=== PATIENT | female | born 1990 | race African-American/Black ===

== ENCOUNTER 2018-01-01 18:06 | Observation (INO) | payer OTHER ==
[2018-01-01] MEDS ORDERED: cefTRIAXone(*) 1 GM in NS 0.9% 50 ML* 50 ML IVPB ONE (19:12)
[2018-01-01] MEDS ORDERED: NS 0.9% 1000 ML* 1,000 ML IV ONE (19:12)
[2018-01-01] MEDS ORDERED: Ketorolac INJ* 30 MG/ML 1 ML VIAL IV PUSH ONE (19:13)
[2018-01-01] MEDS ORDERED: Dexamethasone IV* 4 MG/ML 5 ML VIAL (20 MG) IVPB ONE (19:13)
--- NOTE | 2018-01-01 19:17 | ED ---
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 Sx started after HPV vaccine 5 days ago and consisted of sore throat, runny nose and body aches. This has progressed into trismus, inability to swallow, fever to 102 and worsened body aches. Not . Has boyfriend. LMP 21 Nov. Otherwise healthy prior. Hx is otherwise limited now by pt's inability to speak. She writes out hx. - History of Current Complaint Chief Complaint: EDFever Time Seen by Provider: 01/01/18 19:04 Hx Obtained From: Patient Onset/Duration: Gradual Onset - Allergy/Home Medications Allergies/Adverse Reactions: Allergies Allergy/AdvReac Type Severity Reaction Status Date / Time No Known Allergies Allergy Verified 01/01/18 19:53 PMH/Surg Hx/FS Hx/Imm Hx Previously Healthy: Yes EENT History: Denies: Hx Seasonal Allergies, Pharyngitis - Immunization History Date of Tetanus Vaccine: UTD Immunizations Up to Date: Yes Infectious Disease History: No Infectious Disease History: Denies: Traveled Outside the [place] in Last 30 Days - Social History Occupation: Student Lives: Dormitory/Roommates Alcohol Use: Occasionally Substance Use Type: Reports: None Smoking Status (MU): Never Smoked Tobacco Have You Smoked in the Last Year: No - Additional Comments History Additional Comments: LMP 31 Nov Review of Systems Positive: Fever, Chills, Fatigue Positive: Sore Throat, Nasal Discharge, Other - trimus Negative: Palpitations Negative: Shortness Of Breath Negative: Vomiting, Nausea Negative: Rash All Other Systems Reviewed And Are Negative: Yes Physical Exam Triage Information Reviewed: Yes Vital Signs On Initial Exam: Initial Vitals Temp Pulse Resp BP Pulse Ox 39.1 C 117 20 148/80 98 01/01/18 18:09 01/01/18 18:09 01/01/18 18:09 01/01/18 18:09 01/01/18 18:09 Vital Signs Reviewed: Yes Appearance: Positive: Ill-Appearing - unable to speak or swallow. Negative: No Pain Distress Skin: Positive: Warm, Skin Color Reflects Adequate Perfusion, Dry Head/Face: Positive: Normal Head/Face Inspection Eyes: Positive: Normal ENT: Positive: Other - exudative R tonsil with malodorous breath and mild trismus. No def abscess or uvular shift. Negative: Normal ENT inspection Neck: Positive: Supple, Tenderness @ - R neck, Enlarged Nodes @ - R ant cervical , Other: - no stridor Respiratory/Lung Sounds: Positive: Clear to Auscultation, Breath Sounds Present Cardiovascular: Positive: Normal, Tachycardia Abdomen Description: Positive: Nontender, No Organomegaly Musculoskeletal: Positive: Normal, Strength/ROM Intact Neurological: Positive: Normal, Sensory/Motor Intact, Alert, Oriented to Person Place, Time Psychiatric: Positive: Normal Diagnostics - Vital Signs Vital Signs Temp Pulse Resp BP Pulse Ox 01/01/18 18:09 39.1 C 117 20 148/80 98 - Laboratory Lab Results: Lab Results 01/01/18 01/01/18 Range/Units 18:38 18:38 Influenza A (Rapid) Negative (Negative) Influenza B (Rapid) Negative (Negative) Group A Strep Rapid Negative (Negative) Result Diagrams: 01/01/18 19:50 01/01/18 19:50 Lab Statement: Any lab studies that have been ordered have been reviewed, and results considered in the medical decision making process. - CT No standard instances CT Interpretation: Positive (See Comments) CT Interpretation Completed By: Radiologist - postivive for acute inflammation originating in the R peritonsilar area extending into the epiglottis and retropharyngeal area. No abscess. Moderate narrowing of the airway. Re-Evaluation - Re-Evaluation First Eval Re-Evaluation Time: 21:18 Change: Improved - slight improvement. No deterioration Flu Symptom Course/Dx - Course Course Of Treatment: pt ill appearing without def abscess on exam. CT confirmed this but she shows extensive inflammation on CT. D/W ENT surgeon who agrees at current tx, admission. He is available in case of deterioration. Pt improved slightly. Concern for airway. Admit for further. IVF, rocephin and IV decadron given in ED. - Diagnoses Differential Diagnosis/HQI/PQRI: Positive: Other - mono, strep, PT abscess, Epiglottitis, RPA Provider Diagnoses: Epiglottitis, Acute infective tonsillitis - Physician Notifications Discussed Care Of Patient With: Dano Marroquin - admit, available if deterioration Time Discussed With Above Provider: 21:10 - D/W Dr Romario Koch, hospitalist at 2114 who will admit Instructed by Provider To: Admit As Inpatient Critical Care Time: 30-74 min - exclusive of separately billable procedures Discharge - Discharge Plan Condition: Guarded Disposition: ADMITTED TO [facility] Referrals: [facility] - Jorge DICKERSON [Primary Care Provider] -
[2018-01-01 20:06] LABS: ABS Basophils 0 10^3/ul (0-0.2); ABS Eosinophils 0 10^3/ul (0-0.6); ABS Lymphocytes 1.4 10^3/ul (1.0-4.8); ABS Monocytes 1.1 10^3/ul (0-0.8); ABS Nucleated RBC 0 10^3/ul; Eosinophil % 0 % (0-6); Hematocrit 42 % (35-47); Lymphocyte % 6.7 % (25-47); Mean Corpuscular HGB Conc 34 g/dl (31-36); Mean Corpuscular Hemoglobin 30 pg (27-31); Mean Corpuscular Volume 90 fL (80-97); Mean Platelet Volume 7 um3 (7.4-10.4); Nucleated Red Blood Cells % 0; Platelet Count 364 10^3/ul (150-450); Red Cell Distribution Width 13 % (10.5-15); White Blood Count 21.5 10^3/ul (3.5-10.8)
[2018-01-01 20:17] LABS: EGFR Non-African American 73.5 (>60)
[2018-01-01] MEDS ORDERED: Iohexol 300* (CONTRAST) 10 ML SDV IV ONE (20:25)
--- NOTE | 2018-01-01 21:08 | RAD ---
INDICATION: Possible right peritonsillar abscess. COMPARISON: There are no prior studies available for comparison. TECHNIQUE: A CT scan of the neck was performed with intravenous contrast following intravenous injection of 50 ml of Omnipaque 300 nonionic contrast. Contiguous axial sections were obtained from the skull base through the lung apices. Images were reconstructed in the coronal and sagittal planes. There is suboptimal contrast opacification and a paucity of fat limiting the study. FINDINGS: There is marked soft tissue swelling in the right peritonsillar region with edema and inflammation extending inferiorly to involve the epiglottis and right aryepiglottic fold. There is effacement of the right piriform sinus. There is also edema extending into the retropharyngeal space which is most prominent on the right side. The swelling extends inferiorly to the level of the vocal cords and top of the thyroid gland. There is mass effect with narrowing and displacement of the airway toward the left side. No discrete fluid collection or abscess is seen. There is an enlarged right jugulodigastric lymph node measuring 1.5 cm in transverse dimension. No other enlarged lymph nodes are seen. The thyroid gland appears to be within normal limits. The lung apices appear clear. The paranasal sinuses and mastoid air cells appear clear. No significant focal osseous abnormality is seen. The results of this exam were discussed with the referring clinician. IMPRESSION: THERE IS MARKED SOFT TISSUE SWELLING IN THE RIGHT PERITONSILLAR REGION WITH EDEMA AND INFLAMMATION EXTENDING INFERIORLY TO INVOLVE THE EPIGLOTTIS, RIGHT ARYEPIGLOTTIC FOLD AND ALSO EXTENDING INTO THE RETROPHARYNGEAL SPACE. THIS CAUSES MASS EFFECT WITH NARROWING AND DISPLACEMENT OF THE AIRWAY TOWARD THE LEFT SIDE. NO ABSCESS IS SEEN.
[2018-01-01] MEDS ORDERED: NS 0.9% w/ 20 Meq KCL 1000 ML* 1,000 ML IV SCH (22:00)
[2018-01-01] MEDS ORDERED: Morphine INJ* 2 MG/ML 1 ML CARPUJECT IV PRN (22:08)
[2018-01-01] MEDS ORDERED: KCL 20 MEQ/100 ML IVPREMIX* 20 MEQ/100 ML BAG IV ONE (22:11)
[2018-01-01] MEDS ORDERED: KCL premix 10MEQ/50 ML x 2 BAGS IV SCH (23:00)
[2018-01-01] MEDS ORDERED: Dexamethasone IV* 4 MG in NS 0.9% 50 ML* 50 ML IVPB SCH (23:00)
[2018-01-01] MEDS: NS 0.9% 1000 ML* 1,000 ML IV SCH (23:43)
[2018-01-02] MEDS ORDERED: NS 0.9% IVPB ONE ×2
[2018-01-02] MEDS ORDERED: POTASSIUM CHLORIDE IVPB ONE ×2
[2018-01-02] MEDS: Clindamycin 600 MG IVPREMIX(* 600 MG/50 ML SDV IV SCH ×5 (00:55→23:56)
[2018-01-02] MEDS ORDERED: Dexamethasone IV* 4 MG/ML 1 ML (4 MG) IV SLOW PU SCH (02:00)
[2018-01-02] MEDS: Dexamethasone IV* 4 MG/ML 1 ML (4 MG) IV SLOW PU SCH ×4 (02:08→19:36)
[2018-01-02 06:32] LABS: Hematocrit 39 % (35-47); Hemoglobin 12.9 g/dl (12.0-16.0); Mean Corpuscular HGB Conc 33 g/dl (31-36); Mean Corpuscular Hemoglobin 30 pg (27-31); Mean Corpuscular Volume 91 fL (80-97); Mean Platelet Volume 7 um3 (7.4-10.4); Platelet Count 337 10^3/ul (150-450); Red Blood Count 4.25 10^6/ul (4.0-5.4); Red Cell Distribution Width 13 % (10.5-15); White Blood Count 25.6 10^3/ul (3.5-10.8)
[2018-01-02 06:43] LABS: EGFR Non-African American 88.7 (>60)
--- NOTE | 2018-01-02 07:45 | HP ---
CC: [facility] * HISTORY AND PHYSICAL: DATE OF ADMISSION: 01/01/18 PRIMARY CARE PROVIDER: [facility]. CHIEF COMPLAINT: Sore throat. 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 The patient states that this past Tuesday, she received HPV vaccine. The following day, she developed severe throat. She states that the throat discomfort progressed over the course of the next several days, but was worse on the day of admission. It got to the point where the patient had a difficult time opening her mouth. She has been unable to handle (swallow) her own saliva. She has not been able to really eat or drink anything over the last few days due to the very severe throat. Additionally, the patient does complain of some shortness of breath and cough over the last 2-3 days. She denies any sputum production. The patient has had fevers and chills over the last 2 days. Additionally, the patient has been having intermittent episodes of nausea and vomiting. The patient does state that she is feeling improved mildly after presenting to the emergency room and receiving fluids, steroids, and antibiotics. PAST MEDICAL HISTORY: None. PAST SURGICAL HISTORY: None. MEDICATIONS: None. ALLERGIES: None. FAMILY HISTORY: Mother is living. She is 60 and healthy. Father is living. He is 62 and healthy. They live in [place]. SOCIAL HISTORY: The patient is a nonsmoker. She drinks alcohol on occasion. She does not use any recreational drugs. She is at [employer] studying [employer]. She is not . She has no children. Her mother would be her healthcare proxy. REVIEW OF SYSTEMS: The patient admits to fevers and chills as above. She does state that she has an appetite, but she has not been able to eat due to the sore throat. She admits to chest pain with coughing. No lower extremity edema. She admits to the cough and shortness of breath as above. She has had nausea and vomiting as above. No abdominal pain, constitution, diarrhea or hematochezia. No hematuria. No dysuria. She does admit to generalized weakness. No sudden changes in vision. She admits to dysphagia. No joints pains or muscle pains out of the ordinary. No rashes, no anxiety or depression. PHYSICAL EXAMINATION GENERAL: The patient is a well-developed, young female, sitting up in the stretcher, in no acute distress. VITAL SIGNS: Blood pressure 110/74, pulse 111, respirations 20, temp 100.2, currently T-max 102.3. O2 sat 97% on room air. HEENT: Pupils are equal and round. Extraocular muscles are intact. Oropharynx is clear. It is difficult to see to the posterior pharynx. The patient's tongue appears to be coated with a white-yellow material. There is a fullness to the right submandibular region compared to the left. This is tender to palpation. The patient is seen multiple times during my evaluation needing to spit into a wash cloth. She does have some drooling noted as well. PULMONARY: Lungs are clear bilaterally. CARDIAC: Normal S1, S2. Heart rate is tachycardic, but regular. There is no lower extremity edema. ABDOMEN: Bowel sounds are present. Abdomen is soft, nontender, and nondistended. MUSCULOSKELETAL: There is no cyanosis or clubbing of the digits. There is full active range of motion of all 4 extremities. SKIN: Warm and dry. There are no rashes. NEUROLOGIC: Cranial nerves II through XII are grossly intact. Sensation is intact to light touch throughout. Strength is 5/5 and symmetric in both the upper and lower extremities bilaterally. PSYCH: The patient is alert. She is oriented x3. Affect appears appropriate. DIAGNOSTIC STUDIES/LAB DATA: WBC 21.5, hemoglobin 14.0, hematocrit 42, platelets 364. Sodium 134, potassium 3.4, chloride 98, CO2 25, BUN 9, creatinine 0.93, glucose 117, lactic acid 1.4, calcium 9.9. [place] screen negative. Influenza A and B negative. Group A strep rapid negative. CT neck, there is marked soft tissue swelling in the right peritonsillar region with edema and the inflammation extending inferiorly to involve the epiglottis, right aryepiglottic fold, and also extending into the retropharyngeal space. This causes mass effect with narrowing and displacement of the airway towards the left. No abscess is seen. ASSESSMENT AND PLAN: Ms. Dolores Kerns is a 27-year-old female who presents to the emergency room with a 5-day history of severe sore throat, difficulty swallowing, fevers and chills and is found have acute pharyngitis with possible epiglottitis. 1. Pharyngitis and epiglottitis. Most likely this is viral in nature. However , the concern for epiglottitis, the patient will be treated with IV antibiotics. The patient has received ceftriaxone in the emergency room and this will be continued on a daily basis. Additionally, I will add clindamycin to cover for possible MRSA. Blood cultures have been sent and are pending at this time. The patient has a marked leukocytosis. This will be followed. Additionally, she will have a CRP added to her labs taken in the emergency room. The patient will need to be monitored very closely for any airway compromise. Additionally followup imaging may be necessary to determine whether or not an abscess does develop in the peritonsillar space. She will continue on Decadron 4 mg IV q. 6 hours. She did receive 10 mg in the emergency room. She will have Toradol and morphine available for pain. The patient has been informed to alert nursing is she has any change in her respiratory status where she feels suddenly like it is more difficult to breath. Will follow up with ENT tomorrow. The ER provider did speak to Dr. Marroquin from ENT this evening. The patient is septic based on sepsis 2 criteria with tachycardia, fever, leukocytosis, and tachypnea. The patient has no end organ dysfunction, however. The patient will be monitored for worsening signs of sepsis. 2. DVT prophylaxis. According to the Adult Thrombosis Prophylaxis Risk Factor Assessment Guide, the patient has a total risk factor score of 1 making her low risk. Ambulation will be utilized as DVT prophylaxis. 3. Code status is full. TIME SPENT: 65 minutes was spent admitting this patient. [id number]/[facility] #: [id number] BRIAN
[2018-01-02] MEDS: NS 0.9% 1000 ML* 1,000 ML IV SCH ×2 (09:14→18:11)
[2018-01-02] MEDS: Ondansetron INJ* 2 MG/ML VIAL IV PRN ×2 (09:19→18:13)
--- NOTE | 2018-01-02 16:17 | PN ---
Subjective Date of Service: 01/02/18 Interval History: says she feels better today than she did last night. tried some liquids, and could not swallow them at all. Family History: Unchanged from Admission Social History: Unchanged from Admission Past Medical History: Unchanged from Admission Objective Active Medications: Dexamethasone Sodium Phosphate (Decadron Iv*) 8 mg IV SLOW PU Q6H [facility] Last Admin: 01/02/18 13:40 Dose: 8 mg Clindamycin HCl/Dextrose (Cleocin 600 Mg Ivpremix(*) Sdv) 600 mg in 50 mls @ 100 mls/hr IV Q6H [facility] Last Admin: 01/02/18 13:51 Dose: 100 mls/hr Sodium Chloride (Ns 0.9% 1000 Ml*) 1,000 mls @ 150 mls/hr IV PER RATE [facility] Last Admin: 01/02/18 09:14 Dose: 150 mls/hr Ceftriaxone Sodium 1 gm/ (Dextrose) 50 mls @ 200 mls/hr IVPB Q24H [facility] Ketorolac Tromethamine (Toradol Inj*) 30 mg IV PUSH Q6H PRN PRN Reason: PAIN Morphine Sulfate (Morphine Inj (Syringe)*) 2 mg IV Q4H PRN PRN Reason: PAIN - MILD Ondansetron HCl (Zofran Inj*) 4 mg IV Q6H PRN PRN Reason: NAUSEA Last Admin: 01/02/18 09:19 Dose: 4 mg Vital Signs - 8 hr 01/02/18 01/02/18 01/02/18 08:24 10:57 13:07 Temperature 97.7 F 98.6 F Pulse Rate 81 82 82 Respiratory 14 20 Rate Blood Pressure 99/57 93/62 116/69 (mmHg) O2 Sat by Pulse 100 100 100 Oximetry 01/02/18 15:24 Temperature 98.9 F Pulse Rate 101 Respiratory 19 Rate Blood Pressure 117/70 (mmHg) O2 Sat by Pulse 100 Oximetry Oxygen Devices in Use Now: None Appearance: alert, nontoxic female in no distress Eyes: No Scleral Icterus Ears/Nose/Mouth/Throat: - - markedly edematous tonsils, L>R without exudates. foul smelling. no drooling. Neck: - - R submandibular adenopathy Respiratory: Symmetrical Chest Expansion and Respiratory Effort, - - no stridor , no wheezing Extremities: No Edema Skin: No Rash or Ulcers Neurological: Alert and Oriented x 3 Result Diagrams: 01/02/18 06:02 01/02/18 06:02 Additional Lab and Data: Lab Results 01/01/18 01/01/18 Range/Units 18:38 18:38 Influenza A (Rapid) Negative (Negative) Influenza B (Rapid) Negative (Negative) Group A Strep Rapid Negative (Negative) Assess/Plan/Problems-Billing Assessment: 27 yo female with no medical history admitted after several days of sore throat for inability to tolerate po and handle secretions - Patient Problems (1) Acute tonsillitis Current Visit: Yes Status: Acute Code(s): J03.90 - ACUTE TONSILLITIS, UNSPECIFIED SNOMED Code(s): 27890004 Comment: rapid strep, mono, and flu are negative Ct neck showed to peritonsillar or retropharyngeal abscess no stridor on exam still unable to take PO, continue IVF continue IV clinda continue continuous pulse oximetry (2) Sepsis Current Visit: Yes Status: Acute Comment: due to #1; clinda as above, continue IVF resuscitation Status and Disposition: inpatient until can take PO
[2018-01-02] MEDS: Ketorolac INJ* 30 MG/ML 1 ML VIAL IV PUSH PRN (19:37)
[2018-01-02] MEDS: cefTRIAXone(*) 1 GM in D5W 50 ML BAG* 50 ML IVPB SCH (19:44)
[2018-01-03] MEDS: Dexamethasone IV* 4 MG/ML 1 ML (4 MG) IV SLOW PU SCH ×4 (01:40→19:23)
[2018-01-03] MEDS: NS 0.9% 1000 ML* 1,000 ML IV SCH (04:03)
[2018-01-03] MEDS: Clindamycin 600 MG IVPREMIX(* 600 MG/50 ML SDV IV SCH ×2 (06:03→13:06)
[2018-01-03 07:27] LABS: Hematocrit 35 % (35-47); Hemoglobin 11.7 g/dl (12.0-16.0); Mean Corpuscular HGB Conc 33 g/dl (31-36); Mean Corpuscular Hemoglobin 30 pg (27-31); Mean Corpuscular Volume 91 fL (80-97); Mean Platelet Volume 7 um3 (7.4-10.4); Platelet Count 311 10^3/ul (150-450); Red Blood Count 3.87 10^6/ul (4.0-5.4); Red Cell Distribution Width 13 % (10.5-15); White Blood Count 26.1 10^3/ul (3.5-10.8)
[2018-01-03 07:42] LABS: EGFR Non-African American 97.1 (>60)
[2018-01-03 08:42] LABS: ABS Basophils 0 10^3/ul (0-0.2); ABS Eosinophils 0 10^3/ul (0-0.6); ABS Lymphocytes 1.4 10^3/ul (1.0-4.8); ABS Monocytes 0.7 10^3/ul (0-0.8); ABS Neutrophils 24.1 10^3/ul (1.5-7.7); ABS Nucleated RBC 0 10^3/ul; Eosinophil % 0 % (0-6); Lymphocyte % 5.2 % (25-47); Nucleated Red Blood Cells % 0
[2018-01-03] MEDS: Ketorolac INJ* 30 MG/ML 1 ML VIAL IV PUSH PRN (10:17)
[2018-01-03] MEDS: Clindamycin CAP* 150 MG PO SCH ×2 (15:31→22:35)
[2018-01-03] MEDS: cefTRIAXone(*) 1 GM in D5W 50 ML BAG* 50 ML IVPB SCH (19:27)
[2018-01-04] MEDS: Ketorolac INJ* 30 MG/ML 1 ML VIAL IV PUSH PRN (00:27)
[2018-01-04] MEDS: Dexamethasone IV* 4 MG/ML 1 ML (4 MG) IV SLOW PU SCH ×2 (02:05→08:23)
[2018-01-04 03:50] LABS: Urine Appearance Clear; Urine Blood Negative (Negative); Urine Color Yellow; Urine Ketones Negative (Negative); Urine Protein Negative (Negative); Urine Specific Gravity 1.032 (1.010-1.030); Urine Urobilinogen Negative (Negative)
[2018-01-04] MEDS: Clindamycin CAP* 150 MG PO SCH (05:49)
[2018-01-04 08:00] VITALS: BP 122/75
--- NOTE | 2018-01-05 05:51 | DS ---
DISCHARGE SUMMARY: DATE OF ADMISSION: 01/01/18. DATE OF DISCHARGE: 01/04/18. PRINCIPAL DISCHARGE DIAGNOSES: Pharyngitis, tonsillitis and epiglottitis with airway compromise. BRIEF HOSPITAL COURSE BY PROBLEM: Pharyngitis/tonsillitis/epiglottitis. Ms. Dolores Kerns who presented to the emergency department with severe sore throat and inability to handle her secretions. A CT neck at admission showed marked soft tissue swelling in the right peritonsillar region with edema and inflammation extending inferiorly to involve the epiglottitis, right rima- epiglottic fold and also extending into the retropharyngeal face. This causes mass effect with narrowing and displacement of airway toward the left side. No abscess was seen. She was admitted for an airway watch, was given an IV antibiotics and IV Decadron and by the second day of admission inflammation had improved so that she was able to take p.o. liquids and pills. On the afternoon of 01/03/18 her IV antibiotics were changed to p.o. clindamycin and she tolerated this well. Her diet was advanced to a full diet and again she tolerated a full diet well. Her strep mono and blood cultures were all negative as was an influenza swab. I am treating her with a 10-day course total of antibiotics and she will be discharged to home on p.o. clindamycin for 8 more days. She was instructed to return to the emergency department if her sore throat worsens, if she develops fevers or any difficulty breathing or change in voice PHYSICAL EXAMINATION: Physical exam at the time of discharge, temperature 97.9 , heart rate 57, respiratory rate 16, pulse ox 100% on room air, blood pressure 122/75. General: Alert, young, well-appearing female in no distress. HEENT: Posterior pharynx with mild erythema. Minimal tonsillar enlargement, but it is markedly improved since the day prior, no pharyngeal exudates. Neck: Mild tender right submandibular lymphadenopathy. Chest: Regular rate and rhythm. No murmurs. Lungs: Clear bilaterally. Abdomen is soft, nontender, nondistended. Extremities: No rashes. No ulcers. Strength: 5+ throughout. Pulses are 2+ throughout. [id number]/[facility] #: [id number] [facility]
== END 2018-01-04 13:20 | disposition home or self-care (01) ==
LOC: ED 18:06 → MED 22:08 → INTOOBSV 22:08
PROVIDERS: ADMIT Hospitalist; ATTEND Internal Medicine
DX: J05.10 Acute epiglottitis without obstruction (principal); J03.90 Acute tonsillitis, unspecified; R50.9 Fever, unspecified; J02.9 Acute pharyngitis, unspecified
CPT/HCPCS: 36415; 70491; 80048; 81003; 83605; 83735; 84702; 85025; 85027; 86140; 86308; 87040; 87502; 87651; 96365; 96375; 99285; A9270-GY; G0378; J0696; J1100; J1885; J2405; J3480; Q9967